=== PATIENT | male | born 1955 | race Caucasian/White ===

== ENCOUNTER 2017-02-22 10:13 | Emergency (ER) | payer OTHER, MEDICAID ==
[~2017-02-22] VITALS: Ht 175.3 cm; Wt 68.0 kg
[~2017-02-22 10:13] MED LIST: ASPI81TA2 PO; CARB-61 PO; DIVA500T7 PO; ESCI10TA PO; FINA5TAB3 PO; LEVE500T13 PO; LEVO100T9 PO; PRAM0.5T3 PO; TAMS0.4C96 PO; TIZA2TAB4 PO; TRIH2TAB3 PO; [UNRECOGNIZED DRUG - CODE] PO
[2017-02-22 10:27] VITALS: BP_SYST 136
[2017-02-22] MEDS ORDERED: BACITRACIN 1 GM OINT TP ONE ×2 (10:30→10:40)
[2017-02-22] MEDS ORDERED: DIPH-TET-PERTUS Vaccine 0.5 ML VIAL (ADACEL) IM ONE (10:30)
[2017-02-22 10:50] VITALS: BP_SYST 136
== END 2017-02-22 10:49 | disposition home or self-care (01) ==
LOC: SED 10:13
DX: S00.33XA Contusion of nose, initial encounter (principal); G80.9 Cerebral palsy, unspecified; E03.9 Hypothyroidism, unspecified; W18.09XA Striking against other object with subsequent fall, initial encounter; Y93.89 Activity, other specified; Y92.89 Other specified places as the place of occurrence of the external cause; Y99.8 Other external cause status
CPT/HCPCS: 90715; 99283

== ENCOUNTER 2017-06-29 17:02 | Emergency (ER) | payer OTHER, MEDICAID ==
[~2017-06-29] VITALS: Ht 172.7 cm; Wt 65.8 kg
[2017-06-29 17:15] VITALS: BP_SYST 105
--- NOTE | 2017-06-29 17:15 | NUR ---
Patient to ER bed 8 to gown for evaluation. Side rails up. Report given to DHIRAJ Villaseñor.
--- NOTE | 2017-06-29 17:45 | NUR ---
Patient to ER for c/o generalized weakness, incontinent of urine, and fever at home for the last 3 days. No c/o pain at present, patient able to ambulate without difficulty to room 8 to await MD evaluation, will continue to observe and assess.
[2017-06-29] MEDS ORDERED: NS 500 ML IV ONE (18:00)
[2017-06-29] MEDS ORDERED: PIPERACILLIN/TAZO 3.38 GM in NS 50 ML IV ONE (18:00)
--- NOTE | 2017-06-29 18:00 | NUR ---
Dr Street at bedside to evaluate patient.
[2017-06-29 18:31] LABS: PROTHROMBIN TIME 11.2 SECS (9.5-12.5)
[2017-06-29 18:32] LABS: CALCIUM 8.4 mg/dL (8.4-11.0); CREATININE 0.66 mg/dL (0.55-1.30); POTASSIUM 4.3 mmol/L (3.5-5.1)
[2017-06-29 18:36] LABS: ALBUMIN 3.3 g/dL (3.4-4.8); TOTAL BILIRUBIN 0.6 mg/dL (0.0-1.0)
[2017-06-29 18:39] LABS: BASOPHILS # (AUTO) 0.2 K/uL (0.0-0.2); BASOPHILS % (AUTO) 2.2 % (0.0-2.0); HEMATOCRIT 41.7 % (36-54); HEMOGLOBIN 14.2 g/dL (14.0-18.0); LYMPHOCYTES # (AUTO) 0.7 K/uL (1.0-5.5); LYMPHOCYTES % (AUTO) 6.6 % (20.5-51.5); MEAN CORPUSCULAR HEMOGLOBIN 33 pg (27-31); MEAN CORPUSCULAR HGB CONC 34 % (32-36); MEAN CORPUSCULAR VOLUME 98 fL (79.0-98.0); MONOCYTES # (AUTO) 1.1 K/uL (0.0-1.0); MONOCYTES % (AUTO) 10.1 % (1.7-9.3); NEUTROPHILS # (AUTO) 9.4 K/uL (1.8-7.7); NEUTROPHILS % (AUTO) 81.1 % (40.0-70.0); PLATELET COUNT (AUTO) 163 K/uL (130-430); RED BLOOD CELL COUNT(AUTO) 4.27 MIL/uL (4.2-6.2); RED CELL DISTRIBUTION WIDTH 12.8 % (9.0-15.0); WHITE BLOOD COUNT (AUTO) 11.4 K/uL (4.8-10.8)
[2017-06-29] MEDS ORDERED: PIPERACILLIN/TAZOBACTAM 3.375 GM/VIAL (ZOSYN) IV ONE (18:52)
--- NOTE | 2017-06-29 19:10 | NUR ---
Urine sample obtained from In & out catheter using aseptic technique. OK to use in & out catheter per verbal order of Dr Street. Dr Street at bedside to re-evaluate patient, instructed by MD not to place IV and cancel Zosyn IV. MD will change meds to PO.
[2017-06-29] MEDS ORDERED: MAGNESIUM CITRATE 300 ML ORAL SOLUTION PO ONE (19:15)
[2017-06-29] MEDS ORDERED: ALPRAZolam 0.25 MG TABLET PO ONE (19:15)
[2017-06-29] MEDS ORDERED: PHENAZOPYRIDINE HCL 100 MG TABLET PO ONE (19:15)
[2017-06-29] MEDS ORDERED: LEVOFLOXACIN 500 MG TABLET PO ONE (19:15)
--- NOTE | 2017-06-29 19:17 | NUR ---
Patient's caregiver refused Xanax. aware
--- NOTE | 2017-06-29 19:33 | NUR ---
15 minutes after administration of Levaquin & Mag citrate. No adverse reactions noted. Will continue to monitor.
[2017-06-29 19:40] VITALS: BP_SYST 114
--- NOTE | 2017-06-29 19:40 | NUR ---
Patient given written and verbal discharge instructions and verbalizes understanding. ER MD Street discussed with patient the results and treatment provided. Patient in stable condition. ID arm band removed. Rx of pyridium & cipro given. Patient educated on pain management and to follow up with PMD. Pain Scale 0/10. Opportunity for questions provided and answered.
[2017-06-29 19:41] LABS: BILIRUBIN,URINE NEGATIVE (NEGATIVE); BLOOD, URINE NEGATIVE (NEGATIVE); CLARITY/URINE CLEAR (CLEAR); COLOR,URINE YELLOW (YELLOW); GLUCOSE,URINE NEGATIVE (NEGATIVE); KETONES,URINE NEGATIVE (NEGATIVE); LEUKOCYTE ESTERASE ,URINE NEGATIVE (NEGATIVE); NITRITE, URINE NEGATIVE (NEGATIVE); PH,URINE 7.5 (5.0-8.0); PROTEIN URINE NEGATIVE (NEGATIVE)
== END 2017-06-29 19:40 | disposition home or self-care (01) ==
LOC: SED 17:02
DX: N39.0 Urinary tract infection, site not specified (principal); K59.00 Constipation, unspecified; E03.9 Hypothyroidism, unspecified; Z79.899 Other long term (current) drug therapy
CPT/HCPCS: 36415; 71010; 80053; 81003; 83605; 83690; 85025; 85610; 87040; 93005; 99285; J7040; J2543

== ENCOUNTER 2017-08-17 06:16 | Emergency (ER) | payer OTHER, MEDICAID ==
[~2017-08-17] VITALS: Ht 175.3 cm; Wt 68.0 kg
--- NOTE | 2017-08-17 06:20 | NUR ---
Patient to ER bed 6 to gown for evaluation. Side rails up. Report given to Sofia HEARN.
[2017-08-17 06:25] VITALS: BP_SYST 136
--- NOTE | 2017-08-17 06:30 | NUR ---
Patient BIB wheelchair by caregiver for complaint of laceration to lower lip. Caregiver states that the patient hit his lip on a glass bowl as he ate breakfast. No active bleeding noted at this time. No other symptoms and complaints at this time.
--- NOTE | 2017-08-17 06:35 | NUR ---
CECIL Borden at bedside for medical evaluation.
[2017-08-17 06:53] VITALS: BP_SYST 136
--- NOTE | 2017-08-17 06:53 | NUR ---
Patient's caregiver given written and verbal discharge instructions and verbalizes understanding. ER MD discussed with patient's caregiver the results and treatment provided. Patient in stable condition. ID arm band removed. Patient educated on pain management and to follow up with PMD. Pain Scale 0/10. Opportunity for questions provided and answered.
== END 2017-08-17 06:53 | disposition home or self-care (01) ==
LOC: SED 06:16
DX: S01.511A Laceration without foreign body of lip, initial encounter (principal); E03.9 Hypothyroidism, unspecified; G20 Parkinson's disease; F02.81 Dementia in other diseases classified elsewhere, unspecified severity, with behavioral disturbance; Z79.899 Other long term (current) drug therapy; W18.30XA Fall on same level, unspecified, initial encounter; Y93.89 Activity, other specified; Y92.89 Other specified places as the place of occurrence of the external cause; Y99.8 Other external cause status
CPT/HCPCS: 99282; J7030

== ENCOUNTER 2018-06-09 20:33 | Emergency (ER) | payer OTHER, MEDICAID ==
[~2018-06-09] VITALS: Ht 177.8 cm; Wt 81.6 kg
[~2018-06-09 20:33] MED LIST changes: +ASPI-1155 PO; -ASPI81TA2 PO; -LEVE500T13 PO; +LEVE500T9 PO
--- NOTE | 2018-06-09 20:40 | NUR ---
Patient to ER bed 3 to gown for evaluation. Side rails up. Report given to Kasi HEARN.
[2018-06-09 20:42] VITALS: BP_SYST 159
--- NOTE | 2018-06-09 20:45 | NUR ---
Tacho liang in [facility] - 06/09/18 at [address] Borden at bedside to evaluate patient.
--- NOTE | 2018-06-09 20:45 | NUR ---
Patient to ER via wheelchair for evaluation of right lower extremity pain/swelling/redness. Patient with HX of self inflicted injury to self per staff from facility. Patient is awake and alert, moving all extremities, limited movement noted though. Vital signs stable, respirations even and unlabored, skin warm and dry to touch. Awaiting evaluation by ER MD, will continue to observe and assess.
--- NOTE | 2018-06-09 21:10 | NUR ---
Patient moved to bed 3
--- NOTE | 2018-06-09 21:15 | NUR ---
Patient moved to bed 6, continues to wait for MD evaluation.
[2018-06-09] MEDS ORDERED: DOCU-144 PO (21:40)
[2018-06-09] MEDS ORDERED: ASCO500T20 PO (21:40)
[2018-06-09] MEDS ORDERED: ZIN220 PO (21:40)
[2018-06-09] MEDS ORDERED: POLY17PO4 PO (21:40)
[2018-06-09] MEDS ORDERED: TRAZ-126 PO (21:40)
--- NOTE | 2018-06-09 21:40 | NUR ---
Medication reconciliation completed with information provided by facility. Any prior medication reconciliation on file was reviewed and corrected.
--- NOTE | 2018-06-09 21:50 | NUR ---
Dr Borden at bedside to evaluate patient.
[2018-06-09] MEDS ORDERED: cefTRIAXone 1 GM in LIDOCAINE 1%, 20 ML MDV 2.1 ML IM ONE (22:15)
[2018-06-09 22:35] VITALS: BP_SYST 146
--- NOTE | 2018-06-09 22:35 | NUR ---
Patient given written and verbal discharge instructions and verbalizes understanding. ER MD discussed with patient the results and treatment provided. Patient in stable condition. ID arm band removed. Rx of Cephalexin given. Patient educated on pain management and to follow up with PMD. Pain Scale 0. Opportunity for questions provided and answered. Medication side effect fact sheet provided. Instructions reviewed with staff from facility, questions answered. No adverse reaction noted to medication. Patient left ER in no acute distress with staff members from facility.
== END 2018-06-09 22:35 | disposition home or self-care (01) ==
LOC: SED 20:33
DX: L03.115 Cellulitis of right lower limb (principal); R03.0 Elevated blood-pressure reading, without diagnosis of hypertension; E03.9 Hypothyroidism, unspecified; F32.9 Major depressive disorder, single episode, unspecified; F20.9 Schizophrenia, unspecified; Z79.82 Long term (current) use of aspirin; Z79.899 Other long term (current) drug therapy
CPT/HCPCS: 96372; 99283; J0696; J2001